=== PATIENT | female | born 1960 | race Caucasian/White ===

== ENCOUNTER 2018-03-22 17:17 | Emergency (ER) | payer OTHER ==
[~2018-03-22] VITALS: Ht 165.1 cm; Wt 62.0 kg
[2018-03-22 17:27] VITALS: BP 163/90
[2018-03-22] MEDS ORDERED: ACETAMINOPHEN 325MG TABLET PO ONE (22:30)
== END 2018-03-22 22:54 | disposition home or self-care (01) ==
LOC: ER 17:17
DX: S43.401A Unspecified sprain of right shoulder joint, initial encounter (principal); S00.03XA Contusion of scalp, initial encounter; V49.19XA Passenger injured in collision with other motor vehicles in nontraffic accident, initial encounter; Y93.89 Activity, other specified; Y92.89 Other specified places as the place of occurrence of the external cause; Y99.8 Other external cause status
CPT/HCPCS: 81025; 99283